=== PATIENT | female | born 1960 | race Caucasian/White ===

== ENCOUNTER 2021-07-02 19:28 | Emergency (ER) | payer SELFPAY ==
[~2021-07-02] VITALS: Ht 160 cm; Wt 81.8 kg
--- NOTE | 2021-07-02 19:35 | PHYS DOC ---
Past History Past Medical History: Arthritis, Bronchitis, COPD, Hypertension, UTI Smoking: Cigarettes General Adult EDM: Chief Complaint: BACK PAIN - NO INJURY HPI: HPI: ".. I am sick... I hurting so bad on my Lt Flank... Fever, chills.. maybe its a UTI... but can't wait to see my doctor.. I just feel terrible...."... " Its been going on a couple days... " .." I try to never go to a emergency room.. 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 flank back pain. Patient complains of fever, chills, malaise, arthralgia, myalgia and malaise. Pt. follows with Dr. Leonor Herrera. Patient has not gotten her Covid vaccination, is scheduled to have it on Sunday.. Patient denies any recent travel. 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 No history of trauma. Patient does continue to smoke tobacco.. Patient denies any history of immunosuppression. Does have a history of diabetes and hypertension. Patient denies any history of trauma. Patient denies any history of kidney stones. Patient denies any history of coronary artery disease. Review of Systems: Review of Systems: Constitutional: History of fever or chills Eyes: Denies change in visual acuity HENT: History of nasal congestion [place] Respiratory: History of a nonproductive cough and shortness of breath Cardiovascular: Denies chest pain or edema GI: Complains of left flank abdominal pain, nausea,. Denies vomiting, bloody stools or diarrhea : Denies dysuria Musculoskeletal: Complains of left flank back pain. Complains of generalized joint, muscle pain Integument: Denies rash Neurologic: Denies headache, focal weakness or sensory changes Endocrine: Denies polyuria or polydipsia Lymphatic: Denies swollen glands Psychiatric: Patient states she feels anxious Family History: Family History: Noncontributory to presentation Current Medications: Current Meds: See nursing for home meds Allergies: Allergies: No known drug allergies Physical Exam: PE: Constitutional: Patient appears in acute distress, very ill in appearance. [] HENT: Normocephalic, atraumatic, bilateral external ears normal, oropharynx moist, no oral exudates, nose swollen turbinates clear rhinorrhea Eyes: PERRLA, EOMI, conjunctiva normal, no discharge. [] Neck: Normal range of motion, no tenderness, supple, no stridor. [] Cardiovascular: Tachycardia heart rate, regular rhythm, no murmur [] PMI to the left Lungs & Thorax: Bilateral breath sounds equal at apex with scattered wheezes. Does have bibasilar crackles (more on the left )with auscultation [] Abdomen: Bowel sounds decreased, soft, no tenderness, no masses, no pulsatile masses. No rebound tenderness on abdomen but does have marked left flank pain. Skin: Warm, diaphoretic, no erythema, no rash. Poor turgor. Capillary refill slightly prolonged at 3-4 seconds in fingers. Back: No tenderness, marked Lt. CVA tenderness. [] Extremities: No tenderness, no cyanosis, no clubbing, ROM intact, no edema. Arthritic changes. No cording appreciated Neurologic: Alert and oriented X 3, moves all extremities on request, does have distal sensory,, no focal deficits noted. [] Psychologic: Affect anxious, judgement normal, mood normal. [] EKG: EKG: My interpretation EKG #1 shows a sinus tachycardia with some nonspecific inferior changes. Does have some pattern of low voltage. Would consider this an abnormal EKG. Time EKG is 2022 hrs. My interpretation EKG #2 shows a sinus rhythm at 81 bpm overall morphology is similar to her EKG #1. There is still some findings of inferior changes but no marked change from EKG #1. Still an abnormal EKG. Time of this EKG is 0151 hrs. Radiology/Procedures: Radiology/Procedures: [[address] [address] IMAGING REPORT Signed PATIENT: CARLI WAGNER ACCOUNT: [id number] : 1960 LOCATION: ER AGE: 61 SEX: F EXAM STATUS: REG ER ORD. PHYSICIAN: JOCE MALIK MD REASON: CENTRAL LINE PLACEMENT PROCEDURE: CHEST AP ONLY Study: XR CHEST 1V Indication: Central line placement. Comparison: 07/02/2021 Findings: Left subclavian central venous catheter with the tip terminating within the SVC. Lower lung volumes from the prior. A component of atelectasis is present. Airspace infiltrates at the left lung base were better characterized on the recent CT. No pneumothorax or layering effusion. Unchanged cardiomediastinal silhouette and ermias. Impression: Central venous catheter normally positioned with the tip projecting within the SVC. Electronically signed by: LAVON HYDE MD (07/03/2021 2:26 AM) [facility] DICTATED AND SIGNED BY: LAVON HYDE MD DATE: 07/03/21224 CC: LEONOR HERRERA; JOCE MALIK MD ~[facility] [place] [address] IMAGING REPORT Signed PATIENT: CARLI WAGNER ACCOUNT: [id number] : 1960 LOCATION: ER AGE: 61 SEX: F EXAM STATUS: REG ER ORD. PHYSICIAN: JOCE MALIK MD REASON: Lt flank pain, fever PROCEDURE: ACUTE ABDOMEN SERIES EXAM: Frontal view of the chest, AP views of the abdomen in upright and supine positions. CLINICAL INDICATION: Reason: Lt flank pain, fever / Spl. Instructions: / History: COMPARISON: None. FINDINGS and IMPRESSION: The heart is not enlarged. Mediastinal and hilar contours are normal. Patchy bilateral perihilar and lung base airspace opacities may be seen with atelectasis or consolidative process such as pneumonia. Covid pneumonia is also a consideration. No pleural effusion or pneumothorax. Dilated loops of small bowel. For example in the right abdomen a 3.7 cm small bowel loops is seen with fluid levels. Obstruction is a primary consideration although ileus could also have this appearance. No abnormal soft tissue mass effect. No suspicious calcifications are seen. No free intraperitoneal gas. Electronically signed by: Fabio Clayton MD (07/02/2021 8:48 PM) [facility] DICTATED AND SIGNED BY: FABIO CLAYTON MD DATE: 07/02/212045 CC: LEONOR HERRERA; JOCE MALIK MD ~MTH0 0 ][place] [id number] IMAGING REPORT Signed PATIENT: CARLI WAGNER ACCOUNT: [id number] : 1960 LOCATION: ER AGE: 61 SEX: F EXAM STATUS: REG ER ORD. PHYSICIAN: JOCE MALIK MD REASON: LEFT FLANK PAIN PROCEDURE: CT ABDOMEN PELVIS WO CONTRAST Exam Date: 07/02/2021 9:[address] ABDOMEN+PELVIS WO Indication: Reason: LEFT FLANK PAIN / Spl. Instructions: / History: . TECHNIQUE: CT examination of the abdomen and pelvis was performed without oral or intravenous contrast. One or more of the following dose reduction techniques were utilized: *Automated exposure control (AEC) *Adjustment of mA and/or kV according to patient size *Use of iterative reconstruction technique *CT scan done according to ALARA, or ALARA/IMAGE GENTLY FINDINGS: Patchy infiltrates are seen in the left lung base. Coronary artery calcifi cations are noted. Calcified granulomas are seen in the liver. There is a 2.5 cm hypodense nodule in the left adrenal gland measuring 7 Hounsfield units consistent with an adrenal adenoma. The liver, gallbladder, spleen, pancreas, and adrenal glands are otherwise normal. There are a few punctate nonobstructing left renal calculi. There is left perinephric stranding and mild left hydronephrosis. No obstructing urinary tract calculi are seen. Findings may represent recently passed calculus or pyelonephritis. The kidneys are otherwise normal bilaterally. No right hydronephrosis or hydroureter is seen. No right urinary tract calculi are seen. Urinary bladder is normal in appearance. There is no bowel obstruction or inflammation. No evidence for acute appendicitis. Mild atherosclerotic calcifications are seen. No lymphadenopathy or ascites is seen. Degenerative changes are seen in the spine. IMPRESSION: Mild left hydronephrosis with perinephric stranding, but without visualized obstructing urinary tract calculus. Findings may represent recently passed calculus or pyelonephritis. Correlate clinically. Punctate nonobstructing left renal calculi are seen. Left adrenal adenoma. Patchy infiltrates in the left lung base suspicious for pneumonia. Correlate clinically. Electronically signed by: Dallas Gupta MD (07/02/2021 10:37 PM) [facility] DICTATED AND SIGNED BY: DALLAS GUPTA MD DATE: 07/02/212224 CC: LEONOR HERRERA [facility]; JOCE MALIK MD ~MTH0 0 Heart Score: C/O Chest Pain: No HEART Score for Chest Pain: HEART Score for Chest Pain Response (Comments) Value History Moderately Suspicious 1 ECG Nonspecific Repolarizatio 1 Age >45 - < 65 1 Risk Factors 1 or 2 Risk Factors 1 Troponin >1-<3x Normal Limit 1 Total 5 Risk Factors: Risk Factors: DM, Current or recent (<one month) smoker, HTN, HLP, family history of CAD, obesity. Risk Scores: Score 0 - 3: 2.5% MACE over next 6 weeks - Discharge Home Score 4 - 6: 20.3% MACE over next 6 weeks - Admit for Clinical Observation Score 7 - 10: 72.7% MACE over next 6 weeks - Early Invasive Strategies Course & Med Decision Making: Course & Med Decision Making Pertinent Labs and Imaging studies reviewed. (See chart for details) Pt.'s vital s rapidly deteriorated after arrival. Required 3 L of fluid bolus LR and eventually placed on Levophed to maintain a MAP of 60. Central line placed. Patient was covered with antibiotics Vanco, Rocephin, and Flagyl. Procedure note: Central Placement- emergent Discussed risk and benefits with patient. Patient agreeable to procedure. Patient left IJ and subclavian space prepped with kit prep. Use of sterile techniques including hat ,gown, face mask., Sterile gloves and placed in protective sterile sheeting/drape. Patient did receive some localized lidocaine at the IJ and subclavian. Patient placed in Trendelenburg position. Approach with 1 stick of seeker needle left subclavian,. Subclavian was cannulized with wire. Triple-lumen passed over wire. Return of venous blood all 3 ports. Biopatch placed. Line sutured. OpSite placed. Placement confirmed in left S VC by chest x-ray. No pneumothorax appreciated. Patient promptly started on Levophed pressor to maintain a MAP of 60. Discussed presentation, testing and treatment plan with Dr. Ortiz advised to transfer pt. to another hospital with critical care capability. [facility]-patient transferred declined by nursing supervisor scrap preparation-holding last ICU bed in the event they have a pt. that codes. Multiple Hospitals call- all declined pt. transfer. [facility]-did accept patient. Patient transferred to the care of Dr. Osorio Critical care time 90 minutes not counting procedures. Impression: 1. Clinical Covid pneumonia/ Viral pattern (COVID - test pending.,) 2. UTI 3. Sepsis/ SIRS 4. Hypotension 5. Leukocytosis 17.2 6. Thrombocytopenia 7. Diabetes = 17.5 8. Renal insufficiency BUN 25 creatinine 1.2 9. Elevated CRP 257.5 10. Elevated troponin- 0.033 1st- 2nd= 0.347* (Notified [facility] of this change in troponin) (Suspect inferior non-STEMI AL) 11. Malnutrition albumin 2.7 12. Tobacco use [facility]patient test positive with a rapid Covid test at their hospital/ [] Dragon Disclaimer: Henrique Disclaimer: This electronic medical record was generated, in whole or in part, using a voice recognition dictation system. Departure Departure: Referrals: LEONOR HERRERA (PCP) Henrique Disclaimer This chart was dictated in whole or in part using Voice Recognition software in a busy, high-work load, and often noisy Emergency Department environment. It may contain unintended and wholly unrecognized errors or omissions. JOCE MALIK MD Jul 02, 2021 19:35
[2021-07-02] MEDS ORDERED: FAMOTIDINE 20 MG/2 ML VIAL IVP ONE (20:00)
[2021-07-02] MEDS ORDERED: KETOROLAC 30 MG/ML VIAL. IVP ONE (20:00)
[2021-07-02] MEDS ORDERED: ONDANSETRON PF 4 MG/2 ML VIAL. IVP ONE (20:00)
[2021-07-02] MEDS ORDERED: IV RINGERS SOLUTION,LACTATED 1,000 ML IV SCH (20:00)
[2021-07-02] MEDS ORDERED: ALBUTEROL SULFATE 8GM INHALER. INH ONE (20:00)
[2021-07-02] MEDS ORDERED: ACETAMINOPHEN 500 MG TABLET PO ONE (20:00)
[2021-07-02 20:21] LABS: BILIRUBIN,URINE NEG (NEG); CLARITY,URINE CLOUDY; COLOR,URINE YELLOW; GLUCOSE,URINE 100 mg/dL (NEG); NITRITE,URINE POS (NEG); UROBILINOGEN,URINE 0.2 mg/dL (0.2 mg/dL)
[2021-07-02 20:25] LABS: BACTERIA,URINE MANY /HPF (0-FEW); SQUAMOUS EPITHELIAL CELL,UR MANY /LPF
[2021-07-02 20:27] LABS: BARBITURATES NEG (NEG); BENZODIAZEPINES NEG (NEG); CANNABINOIDS NEG (NEG); COCAINE NEG (NEG); METHADONE NEG (NEG); OPIATES NEG (NEG); PHENCYCLIDINE NEG (NEG)
[2021-07-02 20:31] LABS: AMPHETAMINE/METHAMPHETAMINE POS (NEG)
[2021-07-02 20:35] LABS: BASO % 0 % (0-3); EOS % 0 % (0-3); HEMOGLOBIN 12.4 g/dL (12.0-15.5); LYMPH # 0.9 x10^3/uL (1.0-4.8); LYMPH % 5 % (24-48); MEAN CORPUSCULAR HEMOGLOBIN 30 pg (25-35); MEAN CORPUSCULAR HGB CONC 34 g/dL (31-37); MEAN CORPUSCULAR VOLUME 91 fL (79-100); MONO # 0.2 x10^3/uL (0.0-1.1); MONO % 1 % (0-9); NEUT # 16.1 x10^3uL (1.8-7.7); NEUT % 94 % (31-73); PLATELET COUNT 134 x10^3/uL (140-400); RED BLOOD COUNT 4.08 x10^6/uL (3.50-5.40); RED CELL DISTRIBUTION WIDTH 14.4 % (11.5-14.5); WHITE BLOOD COUNT 17.2 x10^3/uL (4.0-11.0)
[2021-07-02 20:41] LABS: CALCIUM 8.8 mg/dL (8.5-10.1); CREATININE 1.2 mg/dL (0.6-1.0); GFR 45.7; POTASSIUM 3.5 mmol/L (3.5-5.1)
[2021-07-02] MEDS ORDERED: IV NORMAL SALINE 50ML 50 ML ONE (20:41)
[2021-07-02] MEDS ORDERED: cefTRIAXone SODIUM 1 GM VIAL ONE (20:42)
[2021-07-02 20:47] LABS: ALBUMIN 2.7 g/dL (3.4-5.0); DIRECT BILIRUBIN 0.5 mg/dL (0.0-0.2); TOTAL BILIRUBIN 0.7 mg/dL (0.2-1.0); TOTAL PROTEIN 6.2 g/dL (6.4-8.2)
--- NOTE | 2021-07-02 20:50 | RAD ---
EXAM: Frontal view of the chest, AP views of the abdomen in upright and supine positions. CLINICAL INDICATION: Reason: Lt flank pain, fever / Spl. Instructions: / History: COMPARISON: None. FINDINGS and IMPRESSION: The heart is not enlarged. Mediastinal and hilar contours are normal. Patchy bilateral perihilar and lung base airspace opacities may be seen with atelectasis or consolidative process such as pneumonia. Covid pneumonia is also a consideration. No pleural effusion or pneumothorax. Dilated loops of small bowel. For example in the right abdomen a 3.7 cm small bowel loops is seen wit h fluid levels. Obstruction is a primary consideration although ileus could also have this appearance . No abnormal soft tissue mass effect. No suspicious calcifications are seen. No free intraperiton eal gas. Electronically signed by: Fabio Russo MD (07/02/2021 8:48 PM) [facility]
[2021-07-02 21:23] LABS: C REACTIVE PROTEIN 257.5 mg/L (0-3.3)
[2021-07-02] MEDS ORDERED: IV RINGERS SOLUTION,LACTATED 1,000 ML IV ONE ×2 (22:00→23:45)
--- NOTE | 2021-07-02 22:40 | RAD ---
Exam Date: 07/02/2021 9:[address] ABDOMEN+PELVIS WO Indication: Reason: LEFT FLANK PAIN / Spl. Instructions: / History: . TECHNIQUE: CT examination of the abdomen and pelvis was performed without oral or intravenous contra st. One or more of the following dose reduction techniques were utilized: *Automated exposure control (AEC) *Adjustment of mA and/or kV according to patient size *Use of iterative reconstruction technique *CT scan done according to ALARA, or ALARA/IMAGE GENTLY FINDINGS: Patchy infiltrates are seen in the left lung base. Coronary artery calcifications are noted. Calcified granulomas are seen in the liver. There is a 2.5 cm hypodense nodule in the left adrenal g land measuring 7 Hounsfield units consistent with an adrenal adenoma. The liver, gallbladder, spleen, pancreas, and adrenal glands are otherwise normal. There are a few punctate nonobstructing left renal calculi. There is left perinephric stranding and mild left hydronephrosis. No obstructing urinary tract calculi are seen. Findings may represent rec ently passed calculus or pyelonephritis. The kidneys are otherwise normal bilaterally. No right hydronephrosis or hydroureter is seen. No ri ght urinary tract calculi are seen. Urinary bladder is normal in appearance. There is no bowel obstruction or inflammation. No evidence for acute appendicitis. Mild atherosclerotic calcifications are seen. No lymphadenopathy or ascites is seen. Degenerative changes are seen in the spine. IMPRESSION: Mild left hydronephrosis with perinephric stranding, but without visualized obstructing urinary tract calculus. Findings may represent recently passed calculus or pyelonephritis. Correlate clinically. Punctate nonobstructing left renal calculi are seen. Left adrenal adenoma. Patchy infiltrates in the left lung base suspicious for pneumonia. Correlate clinically. Electronically signed by: León Gupta MD (07/02/2021 10:37 PM) [facility]
[2021-07-02 22:48] LABS: % BANDS 24 % (0-9); % LYMPHS 3 % (24-48); % SEGS 72 % (35-66)
[2021-07-02 22:49] LABS: % ATYL 1 % (0-0); NUCLEATED RBC 1; PLT ESTIMATE ADEQUATE (ADEQUATE)
[2021-07-03] MEDS ORDERED: NOREPINEPHRINE BITARTRATE 4 MG/4 ML VIAL. IV ONE (00:09)
[2021-07-03] MEDS ORDERED: NOREPINEPHRINE BITARTRATE 8 MG in IV DEXTROSE 5% 250 ML IV PRN (00:45)
[2021-07-03] MEDS ORDERED: VANCOMYCIN 1 GM in IV NORMAL SALINE 250ML 250 ML IV ONE (01:15)
[2021-07-03] MEDS ORDERED: IV NORMAL SALINE 250ML 250 ML ONE (01:24)
[2021-07-03] MEDS ORDERED: VANCOMYCIN 1 GM VIAL. ONE (01:24)
[2021-07-03 01:44] VITALS: BP 111/62
--- NOTE | 2021-07-03 02:29 | RAD ---
Study: XR CHEST 1V Indication: Central line placement. Comparison: 07/02/2021 Findings: Left subclavian central venous catheter with the tip terminating within the SVC. Lower lung volumes from the prior. A component of atelectasis is present. Airspace infiltrates at the left lung base were better characterized on the recent CT. No pneumothorax or layering effusion. Unc hanged cardiomediastinal silhouette and ermias. Impression: Central venous catheter normally positioned with the tip projecting within the SVC. Electronically signed by: LAVON HYDE MD (07/03/2021 2:26 AM) [facility]
--- NOTE | 2021-07-03 06:39 | EKG ---
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
--- NOTE | 2021-07-03 06:47 | EKG ---
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
== END 2021-07-03 02:33 | disposition short-term general hospital (02) ==
LOC: ER 19:28
DX: U07.1 COVID-19 (principal); J12.82 Pneumonia due to coronavirus disease 2019; A41.9 Sepsis, unspecified organism; I95.9 Hypotension, unspecified; D72.829 Elevated white blood cell count, unspecified; D69.6 Thrombocytopenia, unspecified; N28.9 Disorder of kidney and ureter, unspecified; R79.82 Elevated C-reactive protein (CRP); R77.8 Other specified abnormalities of plasma proteins; E46 Unspecified protein-calorie malnutrition; Z68.31 Body mass index [BMI] 31.0-31.9, adult
CPT/HCPCS: 36415; 36556; 71045; 74022; 74176; 80048; 80076; 80307; 81001; 82550; 83605; 83690; 84484; 85007; 85025; 86140; 87040; 87077; 87086; 87186; 87205; 93005; 94640; 96361; 96365; 96366; 96367; 96368; 96375; 99291; 99292; C9803; J0696; J1885; J3370; J3490; J7050; J7120; U0003; 99285-25